=== PATIENT | male | born 1960 | race Caucasian/White ===

== ENCOUNTER 2016-06-19 18:54 | Emergency (ER) | payer OTHER ==
[~2016-06-19] VITALS: Ht 190.5 cm; Wt 97.7 kg
[~2016-06-19 18:54] MED LIST: ADVIL200 MG PO; ALPRAZOLAM0.25 M2 PO; ASCORBIC ACID500 M3 PO; B COMPLETE1 EACH PO; CALCIUM CARB1 TABLET PO; CELEXA40 MG PO; CHLORDIAZEPOXID25 MG PO; CITALOPRAM HBR40 MG PO; CLONIDINE HCL0.1 MG PO; CONSTULOSE10 GM/15 M PO; CYANOCOBALAM1000 MCG PO; Chronulac,Cephulac,E PO; DAILY VITAMIN1 EAC8 PO; DOCUSATE SODIU100 MG PO; ENULOSE10 GM/15 M PO; FEROSUL325 MG PO; FOLIC ACID0.4 MG PO; FOLIC ACID1 MG PO; FUROSEMIDE40 MG PO; IRON325 M1 PO; KEFLEX500 MG PO; KRISTALOSE10 GM PO; LIBRIUM25 MG PO; MULTIVITAMIN1 EAC2 PO; PANTOPRAZOLE SO40 MG PO; SPIRONOLACTONE25 MG PO; THERAGRAN1 TABLET PO; THIAMINE HCL100 MG PO; Thiamine,Vitamin B1 PO; VISINE A.C300 DROP/1 BOTH EYES; VITAMIN B-1100 MG PO; WELLBUTRIN75 MG PO; XIFAXAN550 MG PO
[2016-06-19 19:08] VITALS: BP 145/69
[2016-06-19 22:30] LABS: HEMATOCRIT 39.3 % (38.0-50.0); MCH 30.5 PG (29.0-34.0); MCHC 35.1 G/DL (30.0-36.0); MCV 86.9 FL (86-99); MEAN PLAT.VOLUME 10.1 uM^3 (9.0-12.4); PLATELET COUNT 102 K/uL (156-360); RBC DIS.WIDTH-CV 15.5 % (11.8-14.6); RBC DIS.WIDTH-SD 48.8 % (39-53); RED BLOOD COUNT 4.52 M/uL (4.00-5.50); WHITE BLOOD COUNT 8.2 K/uL (4.1-10.2)
[2016-06-19 22:38] LABS: CHLORIDE 114 mEq/L (99-109); POTASSIUM 3.9 mEq/L (3.7-5.4); SODIUM 146 mEq/L (136-147)
[2016-06-19 22:41] LABS: GLUCOSE 92 mg/dL (70-99)
[2016-06-19 22:42] LABS: ANION GAP 12 MEQ/L (2-14)
[2016-06-19 22:43] LABS: TOTAL BILIRUBIN 1.5 mg/dL (0.0-1.0)
[2016-06-19 22:44] LABS: ALKALINE PHOSPHATASE 100 IU/L (3-129); GFR ESTIMATE (CALCULATED) > 59 mL/min/; SERUM ETHYL ALCOHOL 268 mg/dL
[2016-06-19 22:45] LABS: INTER. NORMALIZED RATIO 1.5; PROTHROMBIN TIME 15.4 (9.2-11.2); PTT 29.6 (25-32)
[2016-06-19 22:46] LABS: UREA NITROGEN (BUN) 9 mg/dL (9-23)
[2016-06-19] MEDS ORDERED: KEFLEX500 MG PO (23:05)
[2016-06-19 23:10] LABS: AMPHETAMINE NEGATIVE (500 ng/mL); BARBITURATES NEGATIVE (200 ng/mL); BENZODIAZEPINES NEGATIVE (150 ng/mL); COCAINE PRESUMPTIVE POSITIVE (150 ng/mL); METHADONE NEGATIVE (200 ng/mL); METHAMPHETAMINE NEGATIVE (500 ng/mL); OPIATES (MORPHINE) NEGATIVE (100 ng/mL); PHENCYCLIDINE NEGATIVE (25 ng/mL); THC CANNABINOIDS NEGATIVE (50 ng/mL); TRICYCLIC ANTIDEPRESSANTS NEGATIVE (300 ng/mL)
[2016-06-19 23:11] LABS: ADD MEDTOX COMMENT Y; INTERNAL CONTROLS VALID? YES; OXYCODONE NEGATIVE (100 ng/mL); PROPOXYPHENE NEGATIVE (300 ng/mL)
== END 2016-06-20 06:49 | disposition home or self-care (01) ==
LOC: EME 18:54
PROVIDERS: Emergency Medicine
PROC: 0HQ1XZZ Repair Face Skin, External Approach (ICD-10-PCS; principal; 2016-06-19)
PROC: 3E0234Z Introduction of Serum, Toxoid and Vaccine into Muscle, Percutaneous Approach (ICD-10-PCS; 2016-06-19)
DX: S01.81XA Laceration without foreign body of other part of head, initial encounter (principal); W18.30XA Fall on same level, unspecified, initial encounter; L03.115 Cellulitis of right lower limb; F10.229 Alcohol dependence with intoxication, unspecified; F14.10 Cocaine abuse, uncomplicated; Z23 Encounter for immunization; Y90.8 Blood alcohol level of 240 mg/100 ml or more
CPT/HCPCS: 70450; 80053; 82140; 82948; 84999; 85027; 85610; 85730; 93005; 99281; 99284; G0480

== ENCOUNTER 2016-07-25 16:32 | Emergency (ER) | payer OTHER ==
[~2016-07-25] VITALS: Ht 193 cm; Wt 101.8 kg
[2016-07-25 20:54] VITALS: BP 143/71
== END 2016-07-25 20:55 | disposition home or self-care (01) ==
LOC: EME 16:32
DX: F10.129 Alcohol abuse with intoxication, unspecified (principal)
CPT/HCPCS: 70450; 99281; 99285

== ENCOUNTER 2016-07-27 04:33 | Emergency (ER) | payer OTHER ==
[~2016-07-27] VITALS: Ht 190.5 cm; Wt 100.7 kg
[2016-07-27 05:42] LABS: CHLORIDE 107 mEq/L (99-109); POTASSIUM 3.9 mEq/L (3.7-5.4); SODIUM 143 mEq/L (136-147)
[2016-07-27 05:45] LABS: GLUCOSE 92 mg/dL (70-99)
[2016-07-27 05:46] LABS: ANION GAP 16 MEQ/L (2-14)
[2016-07-27 05:47] LABS: TOTAL BILIRUBIN 2.1 mg/dL (0.0-1.0)
[2016-07-27 05:48] LABS: ALKALINE PHOSPHATASE 140 IU/L (3-129); SERUM ETHYL ALCOHOL 40 mg/dL
[2016-07-27 05:49] LABS: GFR ESTIMATE (CALCULATED) > 59 mL/min/
[2016-07-27 05:50] LABS: UREA NITROGEN (BUN) 16 mg/dL (9-23)
[2016-07-27 05:51] LABS: BASOPHIL COUNT 0.1 K/uL (0-0.1); EOSINOPHIL (%) 0.3 % (0-5); HEMATOCRIT 41.7 % (38.0-50.0); IMMATURE GRANULOCYTE (%) 0.1 % (0.0-0.7); IMMATURE GRANULOCYTE COUNT 0.1 K/uL; LYMPHOCYTE COUNT 0.7 K/uL (1.0-2.8); MCH 30.4 PG (29.0-34.0); MCV 86.7 FL (86-99); MEAN PLAT.VOLUME 11.2 uM^3 (9.0-12.4); MONOCYTE (%) 13.2 % (3-12); MONOCYTE COUNT 1.2 K/uL (0-0.8); NEUTROPHIL (%) 78.5 % (45-76); NEUTROPHIL COUNT 7.4 K/uL (1.8-6.4); PLATELET COUNT 158 K/uL (156-360); RBC DIS.WIDTH-CV 15.9 % (11.8-14.6); RBC DIS.WIDTH-SD 49.3 % (39-53); RED BLOOD COUNT 4.81 M/uL (4.00-5.50); WHITE BLOOD COUNT 9.4 K/uL (4.1-10.2)
[2016-07-27 05:52] LABS: CREATINE KINASE 715 IU/L (1-294); TOTAL CK 715 IU/L (1-294)
[2016-07-27 05:58] LABS: CK-MB 7.6 ng/mL (0.0-4.9)
[2016-07-27] MEDS ORDERED: PERCOCET 5/31 TABLET PO (06:45)
[2016-07-27 06:48] LABS: ADD MIUA? YES; BILIRUBIN NEGATIVE; BLOOD NEGATIVE; COLOR YELLOW ((YELLOW)); GLUCOSE (STRIP) NEGATIVE; KETONES NEGATIVE; LEUKOCYTES NEGATIVE; NITRITE NEGATIVE; PROTEIN (STRIP) 30
[2016-07-27 06:51] LABS: BACTERIA 1+ /HPF; EPITHELIAL CELLS RARE /HPF; HYALINE CASTS 0-5 /LPF; MUCUS NONE SEEN /LPF
[2016-07-27 07:23] VITALS: BP 179/82
== END 2016-07-27 07:10 | disposition home or self-care (01) ==
LOC: EME → EDBD 04:33 → EME 07:10
PROVIDERS: Emergency Medicine
DX: R07.89 Other chest pain (principal); S22.41XA Multiple fractures of ribs, right side, initial encounter for closed fracture; W19.XXXA Unspecified fall, initial encounter; Y92.009 Unspecified place in unspecified non-institutional (private) residence as the place of occurrence of the external cause; R10.11 Right upper quadrant pain; F10.20 Alcohol dependence, uncomplicated; Y90.2 Blood alcohol level of 40-59 mg/100 ml
CPT/HCPCS: 70450; 71260; 74177; 80053; 81003; 82550; 82553; 85025; 99281; 99285; G0480; J2270; J2405; J7030

== ENCOUNTER 2017-03-11 19:16 | Emergency (ER) | payer OTHER ==
[~2017-03-11] VITALS: Ht 190.5 cm; Wt 102.9 kg
[~2017-03-11 19:16] MED LIST changes: +PERCOCET 5/31 TABLET PO
[2017-03-11 19:59] LABS: EOSINOPHIL COUNT 0.1 K/uL (0-0.3); HEMATOCRIT 37.3 % (38.0-50.0); IMMATURE GRANULOCYTE (%) 0.3 % (0.0-0.7); INSTRUMENT ABS NEUTROPHIL CT 3.9 K/uL; LYMPHOCYTE COUNT 1.3 K/uL (1.0-2.8); MCH 29.1 PG (29.0-34.0); MCV 88.4 FL (86-99); MEAN PLAT.VOLUME 9.5 uM^3 (9.0-12.4); MONOCYTE (%) 10.2 % (3-12); MONOCYTE COUNT 0.6 K/uL (0-0.8); NEUTROPHIL (%) 65.7 % (45-76); NEUTROPHIL COUNT 3.9 K/uL (1.8-6.4); PLATELET COUNT 96 K/uL (156-360); RBC DIS.WIDTH-CV 16.2 % (11.8-14.6); RBC DIS.WIDTH-SD 52.2 % (39-53); RED BLOOD COUNT 4.22 M/uL (4.00-5.50); WHITE BLOOD COUNT 5.9 K/uL (4.1-10.2)
[2017-03-11 20:11] LABS: CHLORIDE 113 mEq/L (99-109); POTASSIUM 3.4 mEq/L (3.7-5.4); SODIUM 144 mEq/L (136-147)
[2017-03-11 20:12] LABS: MAGNESIUM 1.9 mg/dL (1.3-2.7)
[2017-03-11 20:13] LABS: GLUCOSE 92 mg/dL (70-99)
[2017-03-11 20:14] LABS: ANION GAP 11 MEQ/L (2-14)
[2017-03-11 20:17] LABS: ALKALINE PHOSPHATASE 111 IU/L (3-129); GFR ESTIMATE (CALCULATED) > 59 mL/min/
[2017-03-11 20:18] LABS: UREA NITROGEN (BUN) 10 mg/dL (9-23)
[2017-03-12] MEDS ORDERED: KEFLEX500 MG PO (03:19)
[2017-03-12 03:25] VITALS: BP 165/91
== END 2017-03-12 03:26 | disposition home or self-care (01) ==
LOC: EME → EDBD 19:16 → EME 03-12 03:26
PROVIDERS: Emergency Medicine
DX: S01.01XA Laceration without foreign body of scalp, initial encounter (principal); W01.10XA Fall on same level from slipping, tripping and stumbling with subsequent striking against unspecified object, initial encounter; F10.20 Alcohol dependence, uncomplicated; F43.10 Post-traumatic stress disorder, unspecified; K21.9 Gastro-esophageal reflux disease without esophagitis; K76.89 Other specified diseases of liver; F32.9 Major depressive disorder, single episode, unspecified
CPT/HCPCS: 70450; 80053; 83735; 85025; 99281; 99284

== ENCOUNTER 2017-09-06 18:43 | Inpatient (IN) | payer OTHER ==
[~2017-09-06] VITALS: Ht 182.9 cm; Wt 99.9 kg
[2017-09-06 19:52] LABS: BASOPHIL (%) 0.3 % (0-1); EOSINOPHIL (%) 0 % (0-5); HEMATOCRIT 33.2 % (38.0-50.0); HEMOGLOBIN 10.6 G/DL (12.5-16.6); IMMATURE GRANULOCYTE (%) 0.3 % (0.0-0.7); LYMPHOCYTE (%) 7.6 % (15-42); LYMPHOCYTE COUNT 0.9 K/uL (1.0-2.8); MCH 25.9 PG (29.0-34.0); MCHC 31.9 G/DL (30.0-36.0); MCV 81.2 FL (86-99); MONOCYTE COUNT 1.1 K/uL (0-0.8); NEUTROPHIL (%) 82.8 % (45-76); NEUTROPHIL COUNT 10.1 K/uL (1.8-6.4); PLATELET COUNT 153 K/uL (156-360); RBC DIS.WIDTH-CV 16.7 % (11.8-14.6); RBC DIS.WIDTH-SD 49.4 % (39-53); RED BLOOD COUNT 4.09 M/uL (4.00-5.50); WHITE BLOOD COUNT 12.2 K/uL (4.1-10.2)
[2017-09-06 20:02] LABS: ALBUMIN 3.4 g/dL (3.2-4.8); CHLORIDE 117 mEq/L (99-109); POTASSIUM 3.3 mEq/L (3.7-5.4); SODIUM 152 mEq/L (136-147)
[2017-09-06 20:05] LABS: GLUCOSE 115 mg/dL (70-99); TOTAL PROTEIN 7.1 g/dL (6.4-8.3)
[2017-09-06 20:06] LABS: TOTAL BILIRUBIN 1.9 mg/dL (0.0-1.0)
[2017-09-06 20:07] LABS: SERUM ETHYL ALCOHOL < 10 mg/dL
[2017-09-06 20:08] LABS: ALKALINE PHOSPHATASE 108 IU/L (3-129); CREATININE 1.2 mg/dL (0.6-1.3); GFR ESTIMATE (CALCULATED) > 59 mL/min/ (58.99-99999)
[2017-09-06 20:09] LABS: UREA NITROGEN (BUN) 22 mg/dL (9-23)
[2017-09-06 20:10] LABS: AST (GOT) 343 IU/L (2-34); DIRECT BILIRUBIN 0.8 mg/dL (0.0-0.3)
[2017-09-06 20:11] LABS: ALT (GPT) 60 IU/L (3-49); TOTAL CK > 4053 IU/L (1-294)
[2017-09-06 20:12] LABS: INTER. NORMALIZED RATIO 1.5
[2017-09-06 20:13] LABS: TROP-I INTERPRETATION NEGATIVE; TROPONIN-I 0.01 ng/mL (0.0-0.30)
[2017-09-06 20:17] LABS: CK-MB 36.1 ng/mL (0.0-4.9); CKMB RELATIVE INDEX 0.9 (0.0-3.9)
[2017-09-06 21:13] LABS: APPEARANCE CLEAR ((CLEAR)); BILIRUBIN NEGATIVE; BLOOD LARGE; COLOR YELLOW ((YELLOW)); GLUCOSE (STRIP) NEGATIVE; KETONES NEGATIVE; LEUKOCYTES NEGATIVE; NITRITE NEGATIVE; PROTEIN (STRIP) 30; SPECIFIC GRAVITY 1.015 (1.000-1.030); UROBILINOGEN 0.2 MG/DL (0.2-1.0)
[2017-09-06 21:18] LABS: BACTERIA NONE SEEN /HPF; EPITHELIAL CELLS NONE SEEN /HPF; HYALINE CASTS 0-5 /LPF; MUCUS TRACE /LPF; UCUL ADDED? NO; WHITE BLOOD CELLS 0-5 /HPF (0-5)
[2017-09-06 22:05] LABS: CREATINE KINASE 11204 IU/L (1-294)
[2017-09-07 00:09] VITALS: BP 167/87
[2017-09-07 01:15] LABS: CHLORIDE 121 mEq/L (99-109); POTASSIUM 3.4 mEq/L (3.7-5.4); SODIUM 153 mEq/L (136-147)
[2017-09-07 01:17] LABS: GLUCOSE 100 mg/dL (70-99)
[2017-09-07 01:21] LABS: GFR ESTIMATE (CALCULATED) > 59 mL/min/ (58.99-99999)
[2017-09-07 01:22] LABS: UREA NITROGEN (BUN) 22 mg/dL (9-23)
[2017-09-07 02:46] LABS: HEMATOCRIT 30.4 % (38.0-50.0); HEMOGLOBIN 9.7 G/DL (12.5-16.6); MCH 26.1 PG (29.0-34.0); MCHC 31.9 G/DL (30.0-36.0); MCV 81.9 FL (86-99); PLATELET COUNT 127 K/uL (156-360); RBC DIS.WIDTH-SD 50.7 % (39-53); RED BLOOD COUNT 3.71 M/uL (4.00-5.50); WHITE BLOOD COUNT 10.7 K/uL (4.1-10.2)
[2017-09-07 02:54] LABS: CHLORIDE 123 mEq/L (99-109); POTASSIUM 3.5 mEq/L (3.7-5.4); SODIUM 153 mEq/L (136-147)
[2017-09-07 02:57] LABS: GLUCOSE 105 mg/dL (70-99)
[2017-09-07 03:00] LABS: ALKALINE PHOSPHATASE 95 IU/L (3-129); GFR ESTIMATE (CALCULATED) > 59 mL/min/ (58.99-99999)
[2017-09-07 03:01] LABS: UREA NITROGEN (BUN) 21 mg/dL (9-23)
[2017-09-07 03:02] LABS: AST (GOT) 462 IU/L (2-34)
[2017-09-07 03:03] LABS: ALT (GPT) 70 IU/L (3-49)
[2017-09-07 03:11] LABS: TOTAL BILIRUBIN 1.5 mg/dL (0.0-1.0); TOTAL PROTEIN 5.9 g/dL (6.4-8.3)
[2017-09-07 03:40] VITALS: BP 157/98
[2017-09-07 04:22] LABS: CREATINE KINASE 12736 IU/L (1-294)
[2017-09-07 08:18] LABS: BASOPHIL (%) 0.3 % (0-1); EOSINOPHIL (%) 0.3 % (0-5); HEMATOCRIT 31.7 % (38.0-50.0); HEMOGLOBIN 9.8 G/DL (12.5-16.6); IMMATURE GRANULOCYTE (%) 0.4 % (0.0-0.7); LYMPHOCYTE (%) 11.9 % (15-42); LYMPHOCYTE COUNT 1.2 K/uL (1.0-2.8); MCH 25.7 PG (29.0-34.0); MCHC 30.9 G/DL (30.0-36.0); MCV 83.2 FL (86-99); MONOCYTE (%) 10.2 % (3-12); NEUTROPHIL (%) 76.9 % (45-76); NEUTROPHIL COUNT 7.8 K/uL (1.8-6.4); PLATELET COUNT 128 K/uL (156-360); RBC DIS.WIDTH-SD 51.2 % (39-53); RED BLOOD COUNT 3.81 M/uL (4.00-5.50); WHITE BLOOD COUNT 10.1 K/uL (4.1-10.2)
[2017-09-07 08:49] VITALS: BP 172/79
[2017-09-07 08:54] LABS: ALKALINE PHOSPHATASE 79 IU/L (3-129); ALT (GPT) 76 IU/L (3-49); AST (GOT) 486 IU/L (2-34); CHLORIDE 124 MEQ/L (99-109); CREATINE KINASE 14005 IU/L (1-294); GFR ESTIMATE (CALCULATED) > 59 mL/min/ (58.99-99999); GLUCOSE 87 mg/dL (70-99); POTASSIUM 3.3 MEQ/L (3.7-5.4); SODIUM 155 MEQ/L (136-147); TOTAL BILIRUBIN 1.3 MG/DL (0.0-1.0); TOTAL PROTEIN 6.1 G/DL (6.4-8.3); UREA NITROGEN (BUN) 20 mg/dL (9-23)
[2017-09-07 11:43] LABS: HEMATOCRIT 30.9 % (38.0-50.0); HEMOGLOBIN 9.6 G/DL (12.5-16.6); MCV 84.4 FL (86-99)
[2017-09-07] MEDS ORDERED: AMITRIPTYLINE H25 MG PO (12:35)
[2017-09-07] MEDS ORDERED: CITALOPRAM HBR40 MG PO (12:36)
[2017-09-07] MEDS ORDERED: TRAZODONE HCL50 MG PO (12:37)
[2017-09-07 12:38] VITALS: BP 161/73
[2017-09-07] MEDS ORDERED: LAMOTRIGINE150 MG PO (12:38)
[2017-09-07 15:30] VITALS: BP 163/77
== END 2017-09-07 20:10 | disposition hospice, home (50) | DRG 558 ==
LOC: EME 18:43 → 4EAST 21:50 → EDOF 21:50 → ENRESERV 21:56 → 4EAST 23:43
PROVIDERS: Emergency Medicine; Hospitalist; Internal Medicine
DX: M62.82 Rhabdomyolysis (principal); E87.0 Hyperosmolality and hypernatremia; K72.90 Hepatic failure, unspecified without coma; E87.6 Hypokalemia; E86.0 Dehydration; E87.2 Acidosis; S20.229A Contusion of unspecified back wall of thorax, initial encounter; X58.XXXA Exposure to other specified factors, initial encounter; Y92.59 Other trade areas as the place of occurrence of the external cause; K70.30 Alcoholic cirrhosis of liver without ascites; F10.20 Alcohol dependence, uncomplicated; K76.6 Portal hypertension; D68.9 Coagulation defect, unspecified; F43.10 Post-traumatic stress disorder, unspecified; K21.9 Gastro-esophageal reflux disease without esophagitis; K92.2 Gastrointestinal hemorrhage, unspecified; Z66 Do not resuscitate; Z51.5 Encounter for palliative care; F32.9 Major depressive disorder, single episode, unspecified; D64.9 Anemia, unspecified
CPT/HCPCS: 70450; 71045; 73130; 76705; 80048; 80053; 80076; 81003; 82140; 82550; 82550 91; 82553; 83605; 83930; 83935; 84133; 84300; 84484; 85014; 85018; 85025; 85027; 85610; 85730; 87040; 87077; 87186; 87801; 90686; 93005; 99281; 99285; C9113; G0480; J0696; J2060; J3480; J7030